=== PATIENT | female | born 1980 | race Caucasian/White ===

== ENCOUNTER 2020-04-10 12:06 | Emergency (ER) | payer OTHER ==
--- NOTE | 2020-04-10 12:51 | TELE ---
HPI Do you have fever,cough or shortness of breath?: Yes - General Reason For Visit: [id number] Time Seen by Provider: 04/10/20 12:48 History Source: Patient Exam Limitations: Clinical Condition - History of Present Illness Timing/Duration: unsure Associated Symptoms: reports: denies symptoms. denies: cough, fever/chills, nausea/vomiting, rash, shortness of breath, syncope, weakness 04/10/20 12:49 Patient with no significant past medical history present to [facility] urgent care for COVID testing status post returning from [place] a few days ago. Patient denies any symptoms. Denies cough, shortness of breath, fever. Patient just want COVID testing done to make sure she was not exposed while in [place]. Review of Systems - Review of Systems Able to Perform ROS?: Yes Constitutional: No: Chills, Fever, Malaise HEENTM: No: Symptoms Reported, See HPI, Eye Pain, Blurred Vision, Tearing, Recent change in vision, Double Vision, Cataracts, Ear Pain, Ocular Prothesis, Ear Discharge, Nose Pain, Nose Congestion, Tinnitus, Nose Bleeding, Hearing Loss, Throat Pain, Throat Swelling, Mouth Pain, Dental Problems, Difficulty Swallowing, Mouth Swelling, Other Respiratory: No: Symptoms reported, See HPI, Cough, Orthopnea, Shortness of Breath, SOB with Exertion, SOB at Rest, Stridor, Wheezing, Productive cough, Hemoptysis, Other Cardiac (ROS): No: Symptoms Reported, See HPI, Chest Pain, Edema, Irregular Heart Rate, Lightheadedness, Palpitations, Syncope, Chest Tightness, Other ABD/GI: No: Symptoms Reported, Nausea, Vomiting All Other Systems: Reviewed and Negative *Physical Exam - Physical Exam General Appearance: Yes: Nourished, Appropriately Dressed. No: Apparent Distr ess HEENT: positive: Normal ENT Inspection Respiratory/Chest: negative: Respiratory Distress, Accessory Muscle Use Musculoskeletal: positive: Normal Inspection Extremity: positive: Normal Inspection, Normal Range of Motion Integumentary: positive: Normal Color Neurologic: positive: Fully Oriented, Alert, Normal Mood/Affect, Normal Response, Motor Strength 5 - Medical Decision Making 04/10/20 12:50 Asymptomatic patient presented for COVID testing post traveling to [place]. Patient asymptomatic at this time. Discussed self quarantine instructions with patient. COVID tests ordered. Patient to go to [facility] for testing today. Patient stable for discharge Discharge Diagnosis at time of Disposition: Encounter by telehealth for suspected COVID-19 - Referrals Follow-up Referral(s): ON STAFF,NOT [Primary Care Provider] - - Patient Instructions Discharge Instructions: [facility]Coronavirus Instructions, [facility] [address] COVID-19 Isolation Protocol - Discharge Disposition: HOME Condition at time of Disposition: Stable
== END 2020-04-10 12:51 | disposition home or self-care (01) ==
LOC: JVIRT 12:06
DX: Z11.59 Encounter for screening for other viral diseases (principal)
CPT/HCPCS: Q3014-GT; U0003